=== PATIENT | male | born 1980 | race American Indian/Alaskan Native ===

== ENCOUNTER 2017-02-26 17:56 | Emergency (ER) | payer MEDICAID ==
[2017-02-26 18:03] VITALS: BP 121/96
[2017-02-26] MEDS ORDERED: Acetaminophen/HYDROcodone 325-10 MG Tab PO ONE ×2 (18:13→18:20)
[2017-02-26] MEDS ORDERED: Acetaminophen/HYDROcodone 325-10 MG Tab ONE (18:20)
--- NOTE | 2017-02-26 18:23 | EDM.PDOC ---
ED HPI GENERAL MEDICAL PROBLEM - General Chief Complaint: ENT Problem Stated Complaint: TOOTHACHE Time Seen by Provider: 02/26/17 18:10 Source of Information: Reports: Patient History Limitations: Reports: No Limitations - History of Present Illness INITIAL COMMENTS - FREE TEXT/NARRATIVE: This 36 yo male patient reports to the ED with dental pain. The patient had 2 teeth pulled by the dentist at the [facility] on Friday. Revisited the dentist today due to increased pain. Was told to take Tylenol and ibuprofen. The patient reports the dentist stated that if his pain got too bad to go to the ED to get pain medications. Onset Date: 02/24/17 Duration: Constant Location: Reports: Face (mouth (left upper)) Quality: Reports: Ache, Sharp Severity: Severe Improves with: Reports: None Worsens with: Reports: None Treatments ONCOLOGY CONSULTANT: Reports: Acetaminophen, NSAIDS Left Tooth/Teeth Pain Score (Numeric/FACES): 10 - Related Data Allergies Allergy/AdvReac Type Severity Reaction Status Date / Time No Known Allergies Allergy Verified 02/26/17 18:05 Home Meds: Home Meds . [No Known Home Meds] 02/26/17 [History] Past Medical History - Infectious Disease History Infectious Disease History: Reports: None Social & Family History - Tobacco Use Smoking Status *Q: Never Smoker - Caffeine Use Caffeine Use: Reports: Soda - Recreational Drug Use Recreational Drug Use: No ED ROS ENT - Review of Systems Review Of Systems: ROS reveals no pertinent complaints other than HPI. ED EXAM, ENT - Physical Exam Exam: See Below Exam Limited By: No Limitations General Appearance: Alert, WD/WN, Moderate Distress Eye Exam: Bilateral Eye: EOMI, Normal Inspection, PERRL Ears: Normal External Exam, Normal Canal, Hearing Grossly Normal, Normal TMs Nose: Normal Inspection, Normal Mucousa, No Blood Mouth/Throat: Normal Lips, Other (the patient had a dental extraction with packing to the left upper jaw erythematous around the area) Head: Atraumatic, Normocephalic Neck: Normal Inspection, Supple, Non-Tender, Full Range of Motion Respiratory/Chest: No Respiratory Distress, Lungs Clear, Normal Breath Sounds, No Accessory Muscle Use, Chest Non-Tender Cardiovascular: Normal Peripheral Pulses, Regular Rate, Rhythm, No Edema, No Gallop, No JVD, No Murmur, No Rub GI/Abdominal: Normal Bowel Sounds, Soft, Non-Tender, No Organomegaly, No Distention, No Abnormal Bruit, No Mass (Male) Exam: Deferred Rectal (Males) Exam: Deferred Back: Normal Inspection, Full Range of Motion Extremities: Normal Inspection, Normal Range of Motion, Non-Tender, No Pedal Edema, Normal Capillary Refill Neurological: Alert, Oriented, CN II-XII Intact, Normal Cognition, Normal Gait, Normal Reflexes, No Motor/Sensory Deficits Psychiatric: Normal Affect, Normal Mood Skin: Warm, Dry, Intact, Normal Color, No Rash Lymphatic: No Adenopathy Course - Vital Signs Last Recorded V/S: Last Vital Signs Temp 36.8 C 02/26/17 18:01 Pulse 89 02/26/17 18:01 Resp 16 02/26/17 18:01 BP 121/96 H 02/26/17 18:01 Pulse Ox 100 02/26/17 18:01 - Orders/Labs/Meds Meds: Medications Discontinued Medications Generic Name Dose Route Start Last Admin Trade Name René PRN Reason Stop Dose Admin Hydrocodone Bitart/Acetaminophen 1 tab 02/26/17 18:13 [place] 325-10 Mg PO 02/26/17 18:14 ONETIME ONE Departure - Departure Time of Disposition: 18:23 Disposition: Home, Self-Care 01 Condition: Fair Clinical Impression: Pain, dental - Discharge Information Instructions: Dental Dry Socket, [id number] Forms: ED Department Discharge Care Plan Goals: The patient was advised of the examination results during the visit. The patient was given an oral dose of [place] (10/325) while in the ED and a dose of [place] (10/325) to take in 6 hours for pain. If the patient has any additional symptoms or concerns, the patient should follow-up with his primary care facility or with the dentist for continued evaluation and management.
== END 2017-02-26 18:28 | disposition home or self-care (01) ==
LOC: DL.ED 17:56
DX: K08.89 Other specified disorders of teeth and supporting structures (principal)
CPT/HCPCS: 99282; A9270; 99283

== ENCOUNTER 2025-05-08 02:12 | Emergency (ER) | payer MEDICAID ==
[~2025-05-08 02:12] MED LIST: Ondansetron 4 MG/2 ML SDV ONE
[2025-05-08] MEDS: Ondansetron 4 MG/2 ML SDV IVPUSH ONE (02:12)
[2025-05-08] MEDS ORDERED: Sodium Chloride 0.9% 10 ML Syringe FLUSH PRN (02:14)
[2025-05-08] MEDS: Lactated Ringers 1,000 ML IV ONE (02:22)
[2025-05-08 02:30] LABS: ETHANOL BLOOD MEDICAL 285.0 mg/dL (0)
[2025-05-08 02:32] LABS: MDMA (ECSTASY), URINE NEGATIVE (NEGATIVE); METHAMPHETAMINES,URINE POSITIVE (NEGATIVE)
[2025-05-08 02:33] LABS: AMPHETAMINES,URINE POSITIVE (NEGATIVE); BARBITURATES,URINE NEGATIVE (NEGATIVE); OPIATES,URINE NEGATIVE (NEGATIVE); OXYCODONE,URINE NEGATIVE (NEGATIVE); PHENCYCLIDINE,URINE NEGATIVE (NEGATIVE); TCA,URINE NEGATIVE (NEGATIVE)
[2025-05-08 02:35] LABS: A/G RATIO 1.1; ALANINE AMINOTRANSFERASE,ALT 28 U/L (16-63); ASPARTATE AMNIOTRANSFERASE,AST 20 U/L (15-37); BILIRUBIN TOTAL 0.6 mg/dL (0.2-1.0); BLOOD UREA NITROGEN,BUN 14 mg/dL (7-18); CARBON DIOXIDE,CO2 27 mmol/L (21-32); CHLORIDE,CL 104 mmol/L (98-107); CREATININE 0.78 mg/dL (0.70-1.30); ESTIMATED GFR 69 mL/min (>=60); GLUCOSE RANDOM 106 mg/dL (70-99); POTASSIUM,K 3.9 mmol/L (3.5-5.1); PROTEIN TOTAL,TP 8.0 g/dL (6.4-8.2); SODIUM,NA 141 mmol/L (136-145)
[2025-05-08 02:37] LABS: BASOPHILS PERCENT AUTO 0.5 % (0.0-1.0); EOSINOPHILS PERCENT AUTO 2.5 % (1.0-3.0); LYMPHOCYTES PERCENT AUTO 22.7 % (20.5-50.1); MONOCYTES PERCENT AUTO 8.8 % (2-8); NEUTROPHILS PERCENT AUTO 65.5 % (42.2-75.2); PLATELET COUNT,PLT 464 10^3/uL (150-450); RED BLOOD CELL COUNT 4.77 10^6/uL (4.6-6.2); WHITE BLOOD CELL COUNT,WBC 9.6 10^3/uL (5.0-10.0)
[2025-05-08 06:13] VITALS: PULSE 74
[2025-05-08 06:44] VITALS: BP 112/80
== END 2025-05-08 06:44 | disposition home or self-care (01) ==
LOC: EDBD → MERGE 02:12 → DL.ED 02:12
DX: F10.120 Alcohol abuse with intoxication, uncomplicated (principal); G93.40 Encephalopathy, unspecified; F19.10 Other psychoactive substance abuse, uncomplicated; Y90.8 Blood alcohol level of 240 mg/100 ml or more
CPT/HCPCS: 36415; 80053; 80305; 80307; 83735; 85025; 96361; 96374; 96375; 99285; C1758; J2312; J2405; J7120